=== PATIENT | male | born 1935 | race Caucasian/White ===

== ENCOUNTER 2022-10-19 19:47 | Emergency (ER) | payer OTHER ==
[~2022-10-19] VITALS: Ht 172.7 cm; Wt 70.3 kg
[~2022-10-19 19:47] MED LIST: Z.0.LEVOTHYROXINE75 PO
[2022-10-19] MEDS ORDERED: LIDOCAINE HCL 1% LOCAL INJ 20 ML VIAL INJ STA (19:51)
[2022-10-19 20:02] VITALS: O2SAT 98
[2022-10-19] MEDS ORDERED: ULTRAM 50MG50 MG PO (20:09)
[2022-10-19] MEDS ORDERED: CEPHALEXIN500 MG PO (20:09)
[2022-10-19] MEDS ORDERED: CEPHALEXIN 500 MG CAP PO STA (20:49)
[2022-10-19] MEDS ORDERED: BACITRACIN ZINC 0.9GM TP STA (20:50)
[2022-10-19] MEDS ORDERED: ACETAMINOPHEN-1 EAC4 PO (20:51)
== END 2022-10-19 21:06 | disposition home or self-care (01) ==
LOC: ER 19:53
DX: S61.012A Laceration without foreign body of left thumb without damage to nail, initial encounter (principal); W27.0XXA Contact with workbench tool, initial encounter; Y92.009 Unspecified place in unspecified non-institutional (private) residence as the place of occurrence of the external cause
CPT/HCPCS: 12002; 99283; J2001